=== PATIENT | female | born 1990 | race Caucasian/White ===

== ENCOUNTER 2018-08-25 00:40 | Emergency (ER) | payer OTHER ==
[~2018-08-25] VITALS: Ht 162.6 cm; Wt 82.1 kg
[2018-08-25 00:55] VITALS: BP 134/74
--- NOTE | 2018-08-25 01:10 | NUR ---
PT TAKEN TO BED 5
--- NOTE | 2018-08-25 01:12 | NUR ---
Dr. Davenport examining patient.
--- NOTE | 2018-08-25 01:15 | NUR ---
PT BIB SELF C/O URINATING BLOOD, FREQUENT URINATING AND BURNING WHILE URINATING X 2 HOURS; STATES 7/10 PAIN W/ URINATION; MILD TENDERNESS UPON PALPATION TO SUPRAPUBIC. PT ACTING APPROPRIATLY, SPEAKING IN CLEAR AND COMPLETE SENTENCES. BREATHING EQUAL AND UNLABORED. PMH: NONE
[2018-08-25 01:19] LABS: APPEARANCE,URINE HAZY (CLEAR); BILIRUBIN,URINE 1+ (NEGATIVE); BLOOD, URINE 3+ (NEGATIVE); COLOR,URINE RED (YELLOW); LEUKOCYTE ESTERASE ,URINE 2+ (NEGATIVE); NITRITE, URINE POSITIVE (NEGATIVE); PH,URINE 6.5 (5.0-9.0); UGLUCOSE TRACE (NEGATIVE)
[2018-08-25] MEDS ORDERED: CIPROFLOXACIN 250 MG TAB PO ONE (01:40)
[2018-08-25 01:44] LABS: RBC,URINE TOO NUMEROUS TO COUN /HPF (0-5); WBC,URINE TOO MANY TO COUNT /HPF (0-5)
[2018-08-25 02:00] VITALS: BP 134/74
--- NOTE | 2018-08-25 02:00 | NUR ---
Patient discharged with v/s stable. Written and verbal after care instructions given and explained. Patient alert, oriented and verbalized understanding of instructions. Ambulatory with steady gait. All questions addressed prior to discharge. ID band removed. Patient advised to follow up with PMD. Rx of CIPRO WAS given. Patient educated on indication of medication including possible reaction and side effects. Opportunity to ask questions provided and answered.
== END 2018-08-25 02:00 | disposition home or self-care (01) ==
LOC: EDBD 00:40 → MED 00:40
DX: N39.0 Urinary tract infection, site not specified (principal); Z88.0 Allergy status to penicillin; Z88.1 Allergy status to other antibiotic agents
CPT/HCPCS: 81001; 81025; 87086; 87186; 99283

== ENCOUNTER 2023-01-19 11:05 | Emergency (ER) | payer OTHER ==
[~2023-01-19] VITALS: Ht 170.2 cm; Wt 98.0 kg
[2023-01-19 11:20] VITALS: BP 111/77; PULSE 71; RESP 20; TEMP 97.6; O2SAT 100
[2023-01-19] MEDS ORDERED: PYR100 PO (12:47)
[2023-01-19] MEDS ORDERED: CIPR500T4 PO (12:47)
[2023-01-19 15:09] LABS: APPEARANCE,URINE CLEAR (CLEAR); BILIRUBIN,URINE NEGATIVE (NEGATIVE); BLOOD, URINE TRACE-I (NEGATIVE); COLOR,URINE YELLOW (YELLOW); LEUKOCYTE ESTERASE ,URINE NEGATIVE (NEGATIVE); NITRITE, URINE NEGATIVE (NEGATIVE); PH,URINE 6.5 (5.0-9.0); PROTEIN,URINE NEGATIVE (NEGATIVE); UGLUCOSE NEGATIVE (NEGATIVE); UROBILINOGEN,URINE 0.2 EU/dL (0.2 - 1)
== END 2023-01-19 13:13 | disposition home or self-care (01) ==
LOC: MED 11:05
DX: N39.0 Urinary tract infection, site not specified (principal); Z88.0 Allergy status to penicillin; Z88.8 Allergy status to other drugs, medicaments and biological substances; Z79.899 Other long term (current) drug therapy
CPT/HCPCS: 81003; 81025; 87086; 99283

== ENCOUNTER 2023-03-21 19:22 | Emergency (ER) | payer OTHER ==
[~2023-03-21] VITALS: Ht 172.7 cm; Wt 97.5 kg
[~2023-03-21 19:22] MED LIST: CIPR500T4 PO; PYR100 PO
[2023-03-21 19:36] VITALS: BP 144/103; PULSE 75; RESP 16; TEMP 98.1; O2SAT 98
[2023-03-21 20:12] LABS: APPEARANCE,URINE CLEAR (CLEAR); BILIRUBIN,URINE NEGATIVE (NEGATIVE); BLOOD, URINE TRACE-I (NEGATIVE); COLOR,URINE YELLOW (YELLOW); LEUKOCYTE ESTERASE ,URINE NEGATIVE (NEGATIVE); NITRITE, URINE POSITIVE (NEGATIVE); PROTEIN,URINE NEGATIVE (NEGATIVE); UGLUCOSE NEGATIVE (NEGATIVE)
[2023-03-21 20:15] LABS: BACTERIA,URINE 1+ /HPF (None Seen); MUCUS,URINE 1+ /LPF (None Seen); RBC,URINE 0-5 /HPF (0-5); SQUAMOUS EPITHELIAL CELL,UR 0-3 (FEW) /LPF (0-3 (FEW)); WBC,URINE 0-5 /HPF (0-5)
[2023-03-21] MEDS ORDERED: SULF-59 PO (20:31)
== END 2023-03-21 20:43 | disposition home or self-care (01) ==
LOC: MED 19:22
DX: N39.0 Urinary tract infection, site not specified (principal); Z79.899 Other long term (current) drug therapy; Z79.2 Long term (current) use of antibiotics; Z88.0 Allergy status to penicillin; Z88.1 Allergy status to other antibiotic agents
CPT/HCPCS: 81001; 81025; 99283

== ENCOUNTER 2023-03-27 08:12 | Emergency (ER) | payer OTHER ==
[~2023-03-27] VITALS: Ht 172.7 cm; Wt 97.5 kg
[~2023-03-27 08:12] MED LIST changes: +SULF-59 PO
[2023-03-27 08:25] VITALS: BP 143/79; PULSE 83; RESP 18; TEMP 98.5; O2SAT 98
[2023-03-27 09:14] LABS: BILIRUBIN,URINE NEGATIVE (NEGATIVE); COLOR,URINE YELLOW (YELLOW); LEUKOCYTE ESTERASE ,URINE 1+ (NEGATIVE); NITRITE, URINE NEGATIVE (NEGATIVE); PROTEIN,URINE NEGATIVE (NEGATIVE); UGLUCOSE NEGATIVE (NEGATIVE); UROBILINOGEN,URINE 0.2 EU/dL (0.2 - 1)
[2023-03-27 09:24] LABS: APPEARANCE,URINE CLEAR (CLEAR)
[2023-03-27 09:25] LABS: BACTERIA,URINE OCCASSIONAL /HPF (None Seen); BLOOD, URINE 1+ (NEGATIVE); RBC,URINE 0-5 /HPF (0-5); SQUAMOUS EPITHELIAL CELL,UR 0-3 (FEW) /LPF (0-3 (FEW)); WBC,URINE 0-5 /HPF (0-5)
[2023-03-27] MEDS ORDERED: CEPH-588 PO (09:34)
[2023-03-27 09:50] VITALS: BP 143/79; PULSE 83; RESP 18; TEMP 98.5; O2SAT 98
== END 2023-03-27 09:51 | disposition home or self-care (01) ==
LOC: MED 08:12
DX: N39.0 Urinary tract infection, site not specified (principal); Z88.0 Allergy status to penicillin; Z79.899 Other long term (current) drug therapy
CPT/HCPCS: 81001; 81025; 87086; 99283